=== PATIENT | male | born 1980 | race Caucasian/White ===

== ENCOUNTER 2021-02-10 13:47 | Inpatient (IN) | payer OTHER ==
[2021-02-10 15:07] VITALS: BMI 20.1
[2021-02-10] MEDS ORDERED: NICOTINE POLACRILEX 2 MG GUM BC PRN (20:03)
[2021-02-10] MEDS ORDERED: ACETAMINOPHEN 325 MG TABLET (FP) PO PRN (20:03)
[2021-02-10] MEDS ORDERED: P-EPHED 60MG/TRIPROLIDI 2.5MG TABLET PO PRN (20:03)
[2021-02-10] MEDS ORDERED: MAGNESIUM CITRATE 300 ML BOTTLE PO PRN (20:03)
[2021-02-10] MEDS ORDERED: guaiFENesin 200 MG/10 ML 10 ML UNIT-DOSE CUPS PO PRN (20:03)
[2021-02-10] MEDS ORDERED: MAG HYDROX/AL HYDROX/SIMETH 30 ML UNIT-DOSE CUP PO PRN (20:03)
[2021-02-10] MEDS ORDERED: NICOTINE 10 MG CARTRIDGE (INHALER) IH PRN (20:03)
[2021-02-10] MEDS ORDERED: MAGNESIUM HYDROX 2400MG/30ML ORAL SUSPENSION 30 ML CUP PO PRN (20:03)
[2021-02-10] MEDS ORDERED: LOPERAMIDE HCL 2 MG CAPSULE PO PRN (20:03)
[2021-02-10] MEDS ORDERED: TUBERCULIN PPD 5 TU/0.1ML VIAL ID ONE ×2 (20:52→22:00)
[2021-02-10] MEDS: MELATONIN 5 MG TABLETS PO SCH (21:00)
[2021-02-10] MEDS: THIAMINE HCL 100 MG TABLET (FP) PO SCH (21:00)
[2021-02-11] MEDS: IBUPROFEN 400 MG TABLET (FP) PO PRN (06:07)
[2021-02-11] MEDS: PRENATAL VITAMINS W/ FOLIC ACID TABLET (FP) PO SCH (09:48)
[2021-02-11] MEDS: hydrOXYzine PAMOATE 25 MG CAPSULE (FP) PO PRN ×2 (09:49→21:58)
[2021-02-11 10:58] LABS: HEMATOCRIT 38.9 % (35.4-49); HEMOGLOBIN 13.2 GM/dL (11.7-16.9); MCH 33.9 pg (25.7-33.7); MCHC 33.9 g/dl (32.0-35.9); MEAN CELL VOLUME 100.2 fl (80-96); PLATELET COUNT 252 10^3/uL (134-434); RBC 3.88 M/mm3 (4.00-5.60); RDW 12.6 % (11.9-15.9); WHITE BLOOD COUNT 6.7 K/mm3 (4.0-10.0)
[2021-02-11 11:05] LABS: CALCIUM 8.6 mg/dL (8.5-10.1)
[2021-02-11 11:06] LABS: ALBUMIN 3.9 g/dl (3.4-5.0)
[2021-02-11 11:10] LABS: BILIRUBIN,TOTAL 0.5 mg/dL (0.2-1)
[2021-02-11 11:40] LABS: TOT PROT 7.8 g/dl (6.4-8.2)
[2021-02-11 13:42] LABS: URINE APPEARANCE CLEAR; URINE BILIRUBIN NEGATIVE (NEGATIVE); URINE COLOR YELLOW; URINE GLUCOSE (UA) NEGATIVE (NEGATIVE); URINE KETONE NEGATIVE (NEGATIVE); URINE LEUK ESTERASE NEGATIVE (NEGATIVE); URINE NITRITE NEGATIVE (NEGATIVE); URINE PROTEIN NEGATIVE (NEGATIVE); URINE UROBILINOGEN 0.2 mg/dL (0.2-1.0)
[2021-02-11] MEDS: THIAMINE HCL 100 MG TABLET (FP) PO SCH (21:58)
[2021-02-11] MEDS: MELATONIN 5 MG TABLETS PO SCH (21:58)
[2021-02-11] MEDS ORDERED: QUEtiapine FUMARATE 100 MG TABLET (FP) PO SCH (22:00)
[2021-02-12] MEDS: IBUPROFEN 400 MG TABLET (FP) PO PRN (07:13)
[2021-02-12] MEDS: hydrOXYzine PAMOATE 25 MG CAPSULE (FP) PO PRN (08:45)
[2021-02-12 09:28] VITALS: BP 117/79; PULSE 90; TEMP 97.3
[2021-02-12] MEDS: PRENATAL VITAMINS W/ FOLIC ACID TABLET (FP) PO SCH (09:34)
[2021-02-12] MEDS ORDERED: BACITRACIN 0.9 GM PACKET TP SCH (10:00)
== END 2021-02-12 09:40 | disposition left against medical advice (07) | DRG 770 ==
LOC: YASAS 13:47 → Y5N 20:26
PROVIDERS: ADMIT Allergy & Immunology; ATTEND Allergy & Immunology
PROC: HZ42ZZZ Group Counseling for Substance Abuse Treatment, Cognitive-Behavioral (ICD-10-PCS; principal; 2021-02-10)
DX: F11.20 Opioid dependence, uncomplicated (principal); F10.20 Alcohol dependence, uncomplicated; F14.20 Cocaine dependence, uncomplicated; F12.20 Cannabis dependence, uncomplicated; F17.210 Nicotine dependence, cigarettes, uncomplicated; F19.282 Other psychoactive substance dependence with psychoactive substance-induced sleep disorder; F19.24 Other psychoactive substance dependence with psychoactive substance-induced mood disorder; F39 Unspecified mood [affective] disorder; F32.9 Major depressive disorder, single episode, unspecified; J45.909 Unspecified asthma, uncomplicated; S09.90XA Unspecified injury of head, initial encounter; S01.111A Laceration without foreign body of right eyelid and periocular area, initial encounter; W22.01XA Walked into wall, initial encounter; Y92.231 Patient bathroom in hospital as the place of occurrence of the external cause
CPT/HCPCS: 36415; 80053; 81003; 85027; 86780; C9803; U0003; U0005

== ENCOUNTER 2021-06-30 17:15 | Inpatient (IN) | payer OTHER ==
[2021-06-30 18:27] VITALS: BMI 22.3
[2021-06-30] MEDS ORDERED: IBUPROFEN 400 MG TABLET (FP) PO PRN (19:05)
[2021-06-30] MEDS ORDERED: NICOTINE POLACRILEX 2 MG GUM BUC PRN (19:05)
[2021-06-30] MEDS ORDERED: ONDANSETRON *ODT* 4 MG TABLET SL PRN (19:05)
[2021-06-30] MEDS ORDERED: ACETAMINOPHEN 325 MG TABLET (FP) PO PRN ×2 (19:05)
[2021-06-30] MEDS ORDERED: MELATONIN 5 MG TABLETS PO PRN (19:05)
[2021-06-30] MEDS ORDERED: MENTHOL/PHENOL 1 EACH UD MM PRN (19:05)
[2021-06-30] MEDS ORDERED: MAGNESIUM HYDROX 2400MG/30ML ORAL SUSPENSION 30 ML CUP PO PRN (19:05)
[2021-06-30] MEDS ORDERED: MAGNESIUM CITRATE 300 ML BOTTLE PO PRN (19:05)
[2021-06-30] MEDS ORDERED: MAG HYDROX/AL HYDROX/SIMETH 30 ML UNIT-DOSE CUP PO PRN (19:05)
[2021-06-30] MEDS ORDERED: BISMUTH SUBSALICYLATE 524 MG/30 ML PO PRN (19:05)
[2021-06-30] MEDS ORDERED: diazePAM 5 MG TABLET PO PRN (19:07)
[2021-06-30] MEDS: THIAMINE HCL 100 MG TABLET (FP) PO SCH (22:48)
[2021-07-01] MEDS ORDERED: diazePAM 5 MG TABLET PO PRN (09:44)
[2021-07-01] MEDS: METHOCARBAMOL 500 MG TABLET PO PRN ×2 (10:23→22:44)
[2021-07-01] MEDS: hydrOXYzine PAMOATE 25 MG CAPSULE (FP) PO PRN ×3 (10:23→22:44)
[2021-07-01] MEDS: PRENATAL VITAMINS W/ FOLIC ACID TABLET (FP) PO SCH (10:23)
[2021-07-01] MEDS: diazePAM 5 MG TABLET PO SCH ×3 (10:24→22:43)
[2021-07-01 10:38] LABS: HEMATOCRIT 36.6 % (35.4-49); HEMOGLOBIN 12.4 GM/dL (11.7-16.9); MCH 33.4 pg (25.7-33.7); MCHC 33.9 g/dl (32.0-35.9); MEAN CELL VOLUME 98.6 fl (80-96); PLATELET COUNT 210 10^3/uL (134-434); RBC 3.72 M/mm3 (4.00-5.60); RDW 13.1 % (11.9-15.9); WHITE BLOOD COUNT 6.6 K/mm3 (4.0-10.0)
[2021-07-01 10:45] LABS: CALCIUM 8.7 mg/dL (8.5-10.1)
[2021-07-01 10:46] LABS: ALBUMIN 3.4 g/dl (3.4-5.0); BLOOD UREA NITROGEN 22.1 mg/dL (7-18)
[2021-07-01 10:50] LABS: TOT PROT 6.6 g/dl (6.4-8.2)
[2021-07-01 10:51] LABS: BILIRUBIN,TOTAL 0.4 mg/dL (0.2-1)
[2021-07-01] MEDS: THIAMINE HCL 100 MG TABLET (FP) PO SCH (22:44)
[2021-07-02] MEDS: diazePAM 5 MG TABLET PO SCH ×2 (05:43→10:02)
[2021-07-02 08:41] VITALS: BP 123/61; PULSE 93; TEMP 97.2
[2021-07-02] MEDS: PRENATAL VITAMINS W/ FOLIC ACID TABLET (FP) PO SCH (09:53)
[2021-07-03] MEDS ORDERED: diazePAM 5 MG TABLET PO SCH (06:00)
[2021-07-04] MEDS ORDERED: diazePAM 5 MG TABLET PO SCH (06:00)
[2021-07-05] MEDS ORDERED: diazePAM 5 MG TABLET PO ONE (06:00)
== END 2021-07-02 10:04 | disposition left against medical advice (07) | DRG 770 ==
LOC: YASAS 17:15 → Y3N 22:05
PROVIDERS: ADMIT Allergy & Immunology; ATTEND Allergy & Immunology
PROC: HZ2ZZZZ Detoxification Services for Substance Abuse Treatment (ICD-10-PCS; principal; 2021-06-30)
DX: F10.230 Alcohol dependence with withdrawal, uncomplicated (principal); F14.20 Cocaine dependence, uncomplicated; F12.20 Cannabis dependence, uncomplicated; F17.210 Nicotine dependence, cigarettes, uncomplicated; F32.A Depression, unspecified; J45.909 Unspecified asthma, uncomplicated; Z59.00 Homelessness unspecified
CPT/HCPCS: 36415; 80053; 85027; 86780; C9803; U0003; U0005